=== PATIENT | female | born 1960 | race Caucasian/White ===

== ENCOUNTER → 2017-01-05 06:36 | Day surgery (SDC) | payer BC ==
[~2017-01-05 06:36] MED LIST: Buffered Lidocaine 1% SYRIN* 3 ML/SYR SYRINGE INTRADERM ONE; Cyclopentolate 1% OPTH.SOL* 2 ML BTL ONE; Flurbiprofen 0.03% OPTH.SOL* 2.5 ML BTL ONE; Lidocaine 1% MPF* 2 ML VIAL ONE; Midazolam* 1 MG/ML 2 ML VIAL (2 MG) ONE; Neomycin/Polymy/Dex OPHTH.OIN* 3.5 GM ONE; Phenylephrine 2.5% OPTH.SOL* 2 ML BTL ONE; Tetracaine 0.5% OPTH.SOL 4 ML* 1 DROP BTL ONE; Tropicamide 1% OPTH.SOL* BTL ONE; fentaNYL* 50 MCG/ML 2 ML VIAL (100 MCG VIAL) ONE
[2017-01-05 08:26] VITALS: BP 118/77
--- NOTE | 2017-01-05 10:07 | OP ---
DATE OF OPERATION/DATE OF DICTATION: 01/05/2017 - [facility] DATE OF : 1960. SURGEON: Dr. Ahmet Bush. DIESEL STATIONARY ENGINEER: None. ANESTHESIA: Topical with intravenous sedation. PRE-OP DIAGNOSIS: Cataract, right eye. POST-OP DIAGNOSIS: Cataract, right eye. OPERATIVE PROCEDURE: Phacoemulsification and cataract extraction with posterior chamber intraocular lens implant, right eye. COMPLICATIONS: None. BLOOD LOSS: None. DESCRIPTION OF PROCEDURE: The patient was brought to the operating room and received a small amount of intra-venous sedation. A drop of Tetracaine was placed in her right eye. She was prepped and draped in the usual sterile fashion for ophthalmic surgery and attention was directed to the right eye where a speculum was placed. A paracentesis was created at the 11 o'clock position and 0.1 cc of 1 percent preservative-free Lidocaine was injected into the anterior chamber followed by DisCoVisc. The eye was digitally stabilized while a 2.75 mm keratome was used to create a triplanar clear corneal incision at the 9 o'clock position. A continuous curvilinear capsulorrhexis was created with a cystotome and Utrata forceps. BSS on a cannula was used to hydrodissect the lens from the capsule. Phacoemulsification was performed in a divide-and- conquer technique to create four fragments which were removed. Residual cortical material was removed with irrigation and aspiration. DisCoVisc was used to inflate the capsular bag and an AUOOTO 12.0 Diopter lens was folded and inserted into the capsular bag. DisCoVisc was removed using irrigation and aspiration. BSS on a cannula was used to hydrate the corneal stroma and seal the wound. At the end of the case the pupil was round and the lens was centered. The eye was of normal pressure and the wound was water tight. The speculum was removed and topical Maxitrol ointment was placed on the surface of the eye. The eye was closed, patched and shielded and the patient was sent to the recovery room in stable condition with post operative instructions and follow-up appointment given. [id number] #: [id number] MTDD
== END | disposition home or self-care (01) ==
LOC: OREAST 06:36
PROVIDERS: ATTEND Ophthalmology
DX: H26.9 Unspecified cataract (principal)
CPT/HCPCS: J2250; J3010

== ENCOUNTER → 2017-01-12 07:31 | Day surgery (SDC) | payer BC ==
[~2017-01-12 07:31] MED LIST changes: +Acetaminophen TAB* 325 MG PO PRN
[2017-01-12 09:45] VITALS: BP 129/70
--- NOTE | 2017-01-12 16:25 | OP ---
DATE OF OPERATION: 01/12/17 [facility] DATE OF : [birth year] SURGEON: Ahmet Bush MD. DEMOGRAPHER: None. ANESTHESIOLOGIST: Deandre Mason MD ANESTHESIA: Topical with intravenous sedation. PRE-OP DIAGNOSIS: Cataract, left eye. POST-OP DIAGNOSIS: Cataract, left eye. OPERATIVE PROCEDURE: Phacoemulsification and cataract extraction with posterior chamber intraocular lens implant, left eye. COMPLICATIONS: None. BLOOD LOSS: None. DESCRIPTION OF PROCEDURE: The patient was brought to the operating room and received a small amount of intravenous sedation. A drop of Tetracaine was placed in her left eye. She was prepped and draped in the usual sterile fashion for ophthalmic surgery and attention was directed to the left eye where a speculum was placed. A paracentesis was created at the 5 o'clock position and 0.1 cc of 1 percent preservative-free Lidocaine was injected into the anterior chamber followed by DisCoVisc. The eye was digitally stabilized while a 2.75 mm keratome was used to create a triplanar clear corneal incision at the 3 o'clock position. A continuous curvilinear capsulorrhexis was created with a cystotome and Utrata forceps. BSS on a cannula was used to hydrodissect the lens from the capsule. Phacoemulsification was performed in a divide-and- conquer technique to create four fragments which were removed. Residual cortical material was removed with irrigation and aspiration. DisCoVisc was used to inflate the capsular bag and an SN60WF 17.5 diopter lens was folded and inserted into the capsular bag. DisCoVisc was removed using irrigation and aspiration. BSS on a cannula was used to hydrate the corneal stroma and seal the wound. At the end of the case the pupil was round and the lens was centered. The eye was of normal pressure and the wound was water tight. The speculum was removed and topical Maxitrol ointment was placed on the surface of the eye. The eye was closed, patched and shielded and the patient was sent to the recovery room in stable condition with post operative instructions and follow-up appointment given. [id number] #: [id number] MTDD
== END | disposition home or self-care (01) ==
LOC: OREAST 07:31
PROVIDERS: ATTEND Ophthalmology
DX: H25.12 Age-related nuclear cataract, left eye (principal)
CPT/HCPCS: J2250; J3010; V2632

== ENCOUNTER 2019-01-01 07:24 | Emergency (ER) | payer BC ==
--- NOTE | 2019-01-01 07:30 | UC ---
Skin Complaint HPI - HPI Summary HPI Summary: Patient is 58 year old woman, who present today to the urgent care with lump on the left arm that she noticed a few days ago. She denies any injury or trauma. Slightly painful. No redness Also has mild sore throat that she noticed yesterday Denies any fever, chills. Denies any chest pain or shortness of breath. Denies any prior history of skin problems - History of Current Complaint Time Seen by Provider: 01/01/19 07:27 Stated Complaint: LUMP ON LT ARM ?: No - postmenopausal - Allergy/Home Medications Allergies/Adverse Reactions: Allergies Allergy/AdvReac Type Severity Reaction Status Date / Time No Known Allergies Allergy Verified 01/12/17 07:47 Home Medications: Home Medications NK [No Home Medications Reported] 01/01/19 [History Confirmed 01/01/19] PMH/Surg Hx/FS Hx/Imm Hx - Additional Past Medical History Additional PMH: No significant past medical history or surgical history No family history of skin problems Previously Healthy: Yes - Surgical History Surgical History: None - Social History Alcohol Use: None Substance Use Type: None Smoking Status (MU): Never Smoked Tobacco - Immunization History Most Recent Influenza Vaccination: 2011 Most Recent Tetanus Shot: unknown Most Recent Pneumonia Vaccination: none Review of Systems All Other Systems Reviewed And Are Negative: Yes Constitutional: Positive: Negative Skin: Positive: Other - Lump on the left medial arm Eyes: Positive: Negative ENT: Positive: Sore Throat - Minimal Respiratory: Positive: Negative Cardiovascular: Positive: Negative Gastrointestinal: Positive: Negative Genitourinary: Positive: Negative Motor: Positive: Negative Neurovascular: Positive: Negative Musculoskeletal: Positive: Negative Neurological: Positive: Negative Psychological: Positive: Negative Is Patient Immunocompromised?: No Physical Exam - Summary Physical Exam Summary: Physical Exam: Const: Appears well. No signs of apparent distress present. Alert and oriented x 3. Musculo: Walks with a normal gait. Head/Face: Atraumatic, normocephalic on inspection. Eyes: EOMI and PERRLA in both eyes. Conjunctivae clear. No discharge noted ENT: Hearing normal, TM normal appearing bilaterally Minimal if any pharyngeal erythema or exudates . Uvula is midline. No cervical or submandibular lymphadenopathy noted. Respiratory: Respirations are unlabored. Lungs clear to auscultation bilaterally, no wheezing , rhonchi or rales noted . CVS: Regular rate and Rhythm, S1S2 normal , no murmurs identified. Extremities: Peripheral circulation is grossly normal. Pulses 2+ Abdomen : Soft non tender , nondistended , Bowel sounds present . No guarding , rebound tenderness or rigidity noted. Skin: 3 cm x 3 cm size tender lump noted on the medial aspect of the distal arm , freely mobile, no overlying erythema or fluctuation noted. Consistency soft. Does not appear to be originating from a bone or a muscle. Elbow range of motion is full and pain-free, resisted testing of biceps without any reproduction of pain Neuro: Cranial nerves II to XII intact, motor and sensory intact. DTR Intact bilaterally. Mood is normal. Affect is normal. Triage Information Reviewed: Yes Vital Signs Reviewed: Yes Course/Dx - Course Course Of Treatment: During the visit today, we discussed the findings , I suspect a possibility of a lipoma versus a subcutaneous mass that needs further imaging like ultrasound for further evaluation. We discussed that ultrasound can be done on an urgent basis in the ER today but she can safely wait until tomorrow and follow-up with her primary care doctor at [place] and can get ultrasound done. In the meantime I advised her to monitor for any worsening of symptoms and she can come to ER the pain or swelling gets worse. She appears to have mild sore throat, advised her to monitor for any worsening and start using salt water gargles. Return if symptoms get worse Patient expressed understanding . - Diagnoses Provider Diagnosis: Lipoma, Subcutaneous mass, Sore throat Discharge - Sign-Out/Discharge Documenting (check all that apply): Patient Departure All imaging exams completed and their final reports reviewed: No Studies - Discharge Plan Condition: Stable Disposition: HOME Patient Education Materials: Lipoma (ED), Soft Tissue Mass (ED) Referrals: No Primary Care Phys,NOPCP [Primary Care Provider] - Additional Instructions: Follow up with your primary care doctor tomorrow for further imaging Salt water gargles and throat lozenges for sore throat. Patients blood pressure slightly high in Urgent care today , plan follow up with PCP for better control within 4 weeks Return to Urgent care / ER if symptoms get worse. - Billing Disposition and Condition Condition: STABLE Disposition: Home
[2019-01-01 07:41] VITALS: BP 150/89
== END 2019-01-01 08:09 | disposition home or self-care (01) ==
LOC: UCEAST 07:24
DX: R22.32 Localized swelling, mass and lump, left upper limb (principal); D17.21 Benign lipomatous neoplasm of skin and subcutaneous tissue of right arm; J02.9 Acute pharyngitis, unspecified
CPT/HCPCS: 99211; G0463